=== PATIENT | male | born 1990 | race Caucasian/White ===

== ENCOUNTER 2016-11-17 18:11 | Emergency (ER) | payer OTHER ==
[2016-11-17] MEDS ORDERED: Fentanyl 100 MCG/2 ML VIAL ONE (18:29)
[2016-11-17] MEDS ORDERED: Ketorolac Tromethamine 60 MG/2 ML VIAL ONE (18:30)
[2016-11-17] MEDS ORDERED: Promethazine HCl 25 MG/ML VIAL ONE (18:30)
--- NOTE | 2016-11-17 20:48 | CT ---
CT OF THE LUMBAR SPINE WITHOUT CONTRAST: Comparison: None. History: Low back injury with pain in the lower back. Patient was sitting in a chair when it broke and fell backwards and he twisted his back. Technique: Multiple contiguous axial images were obtained in a CT of the lumbar spine without contr ast. Sagittal and coronal reformats were performed. FINDINGS: The vertebral bodies and intervertebral discs demonstrate normal height and alignment without fractu re or subluxation. No degenerative changes are seen. No prevertebral soft tissue swelling is seen. No bony narrowing of the neural foramina or central canal are seen. The prevertebral and paraspinal soft tissues are unremarkable. IMPRESSION: No evidence of acute osseous abnormality of the lumbar spine. POS: [facility]
== END 2016-11-17 19:09 | disposition home or self-care (01) ==
LOC: BURERS 18:11
DX: S39.92XA Unspecified injury of lower back, initial encounter (principal); G89.29 Other chronic pain; I10 Essential (primary) hypertension; F17.210 Nicotine dependence, cigarettes, uncomplicated; Z79.899 Other long term (current) drug therapy; X58.XXXA Exposure to other specified factors, initial encounter
CPT/HCPCS: 72131; 96372; J1885; J2550; J3010

== ENCOUNTER 2017-11-28 21:09 | Emergency (ER) | payer OTHER ==
[2017-11-28] MEDS ORDERED: Fentanyl 100 MCG/2 ML VIAL ONE (21:35)
[2017-11-28 22:04] LABS: Bilirubin Negative (Negative); Blood, Urine Negative (Negative); Clarity Clear (Clear); Glucose, Urine (Dipstick) Negative (Negative); Leukocyte Negative (Negative); Nitrite Negative (Negative); Protein, Urine (Dipstick) Negative (Neg-Trace); Specific Gravity, Urine 1.025 (1.005-1.030); Urobilinogen 0.2 mg/dL (0.2-1.0)
[2017-11-28 22:06] LABS: #Basophils 0.1 thou/uL (0.0-0.2); #Eosinphils 0.3 thou/uL (0.0-0.7); #Lymphocytes 2.9 thou/uL (1.20-3.40); #Neutrophils 6.2 thou/uL (1.40-6.50); %Basophils 1.4 % (0.0-1.0); %Eosinophils 2.5 % (0.0-10.0); %Lymphocytes 27.7 % (21.0-51.0); %Monocytes 9.2 % (0.0-10.0); %Neutrophils 59.2 % (42.0-75.0); Hemoglobin 14.7 g/dL (14.0-18.0); Mean Corpuscular HGB CONC 35.6 g/dL (32.0-36.0); Mean Corpuscular Hemoglobin 32.3 pg (27.0-31.0); Mean Corpuscular Volume 90.7 fl (80.0-94.0); Platelet Count 258 thou/uL (130-400); RBC Distribution Width 11.9 % (11.5-14.5); Red Blood Cell (RBC) Count 4.54 mill/uL (4.70-6.10); White Blood Cell (WBC) Count 10.4 thou/uL (4.8-10.8)
[2017-11-28 22:19] LABS: ALT (SGPT) 29 U/L (8-55); AST (SGOT) 22 U/L (5-34); Albumin 4.3 g/dL (3.5-5.0); Alkaline Phosphatase 67 U/L (40-150); Anion Gap 16 mmol/L (10-20); BUN (Urea Nitrogen) 21 mg/dL (8.9-20.6); Bilirubin, Total 0.2 mg/dL (0.2-1.2); Calc. Creatinine Clearance 0 mL/min (70-130); Calcium 9.4 mg/dL (7.8-10.44); Carbon Dioxide 20 mmol/L (22-29); Chloride 107 mmol/L (98-107); Estimated GFR-MDRD 73; Globulin 2.6 g/dL (2.4-3.5); Glucose 100 mg/dL (70-105); Potassium 4.3 mmol/L (3.5-5.1); Protein, Total 6.9 g/dL (6.0-8.3); Sodium 139 mmol/L (136-145)
[2017-11-28] MEDS ORDERED: Ketorolac Tromethamine 30 MG/ML VIAL ONE (22:35)
--- NOTE | 2017-11-28 23:54 | CT ---
CT ABDOMEN AND PELVIS WITH CONTRAST 11/28/[address] of the abdomen and pelvis was performed for evaluation of right lower quadrant pain. Axial slices were acquired, then coronal reconstructions were done. The lung bases are clear. The liver was normal in size. There may be a small cyst or similar benign p athology present in the posterior right lobe. The liver, spleen, gallbladder, pancreas, adrenal gland s, kidneys, and abdominal aorta all appeared normal. There is no distention of bowel or inflammatory change around bowel. The small bowel is fluid filled but not dilated. No free air or free fluid was seen. Specifically, there is no evidence of an inguina l hernia. CT of the pelvis shows no pelvic masses, fluid collections, or inflammatory changes. IMPRESSION: No significant findings to explain the patient's pain. The fluid filled loops of nondilated small bow el are a nonspecific sign. This could be normal but could also be seen in mild enteritis. POS: [facility]
== END 2017-11-28 22:43 | disposition home or self-care (01) ==
LOC: BURERS 21:09
DX: S39.011A Strain of muscle, fascia and tendon of abdomen, initial encounter (principal); I10 Essential (primary) hypertension; F43.10 Post-traumatic stress disorder, unspecified; F17.210 Nicotine dependence, cigarettes, uncomplicated; Z79.899 Other long term (current) drug therapy; X50.0XXA Overexertion from strenuous movement or load, initial encounter
CPT/HCPCS: 74177; 80053; 81003; 85025; 96374; 96375; J1885; J3010

== ENCOUNTER 2018-01-14 16:29 | Emergency (ER) | payer MEDICARE, OTHER ==
[2018-01-14] MEDS ORDERED: Doxycycline Hyclate 100 MG TAB ONE (16:49)
[2018-01-14] MEDS ORDERED: Bacitracin Zinc 1 Packet ONE (16:51)
--- NOTE | 2018-01-14 16:58 | RAD ---
THREE VIEWS LEFT HAND: 01/14/18 INDICATION: Dog bite. FINDINGS: There is soft tissue gas involving the dorsal aspect of the left hand. No radiopaque foreign body is evident. No acute fracture is demonstrated. IMPRESSION: Soft tissue laceration dorsal aspect of the left hand. There is gas seen within the intermetatarsal r egion of the long and ring finger which may reflect deep muscular involvement. No acute fracture is e vident. POS: [facility]
== END 2018-01-14 16:53 | disposition home or self-care (01) ==
LOC: BURERS 16:29
DX: S61.452A Open bite of left hand, initial encounter (principal); I10 Essential (primary) hypertension; F17.210 Nicotine dependence, cigarettes, uncomplicated; W54.0XXA Bitten by dog, initial encounter
CPT/HCPCS: 12001

== ENCOUNTER 2021-08-25 21:00 | Emergency (ER) | payer MEDICARE ==
[2021-08-25] MEDS ORDERED: Lidocaine 2% w/Epinephrine 1:200K 20 ML VIAL ONE (21:52)
== END 2021-08-25 21:49 | disposition home or self-care (01) ==
LOC: BURERS 21:00
DX: S63.642A Sprain of metacarpophalangeal joint of left thumb, initial encounter (principal); F17.210 Nicotine dependence, cigarettes, uncomplicated
CPT/HCPCS: 29125

== ENCOUNTER 2023-04-27 12:34 | Emergency (ER) | payer OTHER ==
[2023-04-27] MEDS ORDERED: Lidocaine 2% w/Epinephrine 1:200K 20 ML VIAL ONE (12:55)
[2023-04-27] MEDS ORDERED: Boostrix 0.5 ML (Tdap) VIAL (>/=7 yrs of age) ONE (14:05)
== END 2023-04-27 14:16 | disposition home or self-care (01) ==
LOC: BURERS 12:34
DX: S91.311A Laceration without foreign body, right foot, initial encounter (principal); F17.210 Nicotine dependence, cigarettes, uncomplicated; W25.XXXA Contact with sharp glass, initial encounter; Z23 Encounter for immunization
CPT/HCPCS: 90471; 90715